=== PATIENT | male | born 1985 | race Caucasian/White ===

== ENCOUNTER 2018-05-15 17:55 | Emergency (ER) | payer OTHER ==
[2018-05-15] MEDS ORDERED: IBUPROFEN 600 MG TAB PO STA (18:20)
[2018-05-15] MEDS ORDERED: ACETAMINOPHEN TAB 500 MG TAB PO STA (18:20)
--- NOTE | 2018-05-15 18:35 | ED ---
Lower Extremity Injury HPI - General Chief Complaint: Extremity Injury, Lower Stated Complaint: Ankle Injury Time Seen by Provider: 05/15/18 18:14 Source: patient Mode of arrival: wheelchair Limitations: no limitations - History of Present Illness Initial Comments: 33-year-old male patient presents to the emergency department today for evaluation of right foot pain. Patient states he was helping a friend move when he stepped up onto a bench and twisted the foot. States that he is having pain along the right lateral foot and into the bottom of the foot. States initially he was able to ablate however became much more difficult and painful. He denies any numbness or tingling to the foot. States he has sprained ankle and foot multiple times in the past. He did fall with injury, denies hitting his head or losing consciousness. He denies any other injuries. Patient denies any headache, neck pain, back pain, chest pain, shortness of breath, dizziness, weakness, abdominal pain, nausea, vomiting, or difficulties with bowel movements or urination. - Related Data Home Medications Medication Instructions Recorded Confirmed ALPRAZolam [Xanax] 0.5 mg PO BID PRN 10/17/13 10/17/13 traMADol HCl [Ultram] 50 mg PO TID PRN 10/17/13 10/17/13 Previous Rx's Medication Instructions Recorded Ibuprofen [Motrin] 600 mg PO Q6HR PRN #20 tab 10/17/13 Ibuprofen [Motrin] 600 mg PO Q8HR PRN #30 tab 05/15/18 Allergies Allergy/AdvReac Type Severity Reaction Status Date / Time bee pollen Allergy Unknown Verified 05/15/18 17:59 house dust Allergy Unknown Verified 05/15/18 17:59 Review of Systems ROS Statement: Those systems with pertinent positive or pertinent negative responses have been documented in the HPI. ROS Other: All systems not noted in ROS Statement are negative. Past Medical History Past Medical History: No Reported History History of Any Multi-Drug Resistant Organisms: None Reported Past Surgical History: Hernia Repair Past Psychological History: Anxiety Smoking Status: Current every day smoker Past Alcohol Use History: Occasional Past Drug Use History: None Reported General Exam Limitations: no limitations General appearance: alert, in no apparent distress, other (This is a well- developed, well-nourished adult male patient in no acute distress. Vital signs upon presentation are temperature 97.2F, pulse 86, respirations 20, blood pressure 120/77, pulse ox 99% on room air.) Eye exam: Present: normal appearance, PERRL, EOMI. Absent: scleral icterus, conjunctival injection, periorbital swelling Neck exam: Present: normal inspection, full ROM, other (Nontender, no step-off, no deformity to firm midline palpation of the posterior cervical spine. Full range of motion without pain or limitation.). Absent: tenderness, meningismus, lymphadenopathy Respiratory exam: Present: normal lung sounds bilaterally. Absent: respiratory distress, wheezes, rales, rhonchi, stridor Cardiovascular Exam: Present: regular rate, normal rhythm, normal heart sounds. Absent: systolic murmur, diastolic murmur, rubs, gallop, clicks Back exam: Present: normal inspection, other (Nontender, no step-off, no deformity to firm midline palpation of the thoracic and lumbar vertebrae. Full range of motion without pain or limitation.). Absent: vertebral tenderness Neurological exam: Present: alert, oriented X3, CN II-XII intact Psychiatric exam: Present: normal affect, normal mood Skin exam: Present: warm, dry, intact, normal color. Absent: rash Course Vital Signs 05/15/18 05/15/18 17:57 19:58 Temperature 97.2 F L 98.2 F Pulse Rate 86 96 Respiratory 20 18 Rate Blood Pressure 120/77 147/67 O2 Sat by Pulse 99 96 Oximetry Medical Decision Making - Medical Decision Making 33-year-old male patient presented to the emergency department today for evaluation after twisting his right foot. Physical examination did reveal some soft tissue swelling over the dorsum of the right foot. Neurovascular status intact. Pulses 2+ and equal bilaterally. X-rays are negative for any evidence of fracture. Patient symptoms are consistent with a foot sprain. He is given Orestes wrap. Education regarding rest, ice, elevation. He is given prescription for anti-inflammatory pain medication. Instructed to follow-up with his primary care physician have repeat x-rays performed of symptoms persist beyond 7 -10 days. Return parameters discussed in detail. He verbalizes understanding and agrees with this plan. - Radiology Data Radiology results: report reviewed, image reviewed 3 views of the right foot are obtained. Metatarsals are intact. There is no fracture or dislocation. There is a plantar calcaneal spur. There are no erosions. Impression by Dr. Rand shows calcaneal spurring. No fracture seen. 3 views of the right ankle were obtained. There is moderate plantar calcaneal spur. Ankle mortise is anatomic. I see no fracture or dislocation. Joint spaces are fairly normal. Impression by Dr. Rand shows calcaneal spurring. No fracture seen Disposition Clinical Impression: Foot sprain Disposition: HOME SELF-CARE Condition: Good Instructions: Foot Sprain (ED) Additional Instructions: Use Orestes wrap for comfort and support. Keep right foot elevated, apply ice 20 minutes at a time at least 4 times daily. Have repeat x-ray performed in 7-10 days if pain symptoms persist. Follow-up with primary care physician for recheck in 1-2 days. Return immediately for any new, worsening, or concerning symptoms. Prescriptions: Ibuprofen [Motrin] 600 mg PO Q8HR PRN #30 tab PRN Reason: Pain Is patient prescribed a controlled substance at d/c from ED?: No Referrals: Veda Loredo MD [Primary Care Provider] - 1-2 days Time of Disposition: 19:50
--- NOTE | 2018-05-15 19:50 | XR ---
EXAMINATION TYPE: XR ankle complete RT DATE OF EXAM: 05/15/2018 COMPARISON: NONE HISTORY: Foot pain and ankle pain TECHNIQUE: 3 views FINDINGS: There is a moderate plantar calcaneal spur. Ankle mortise is anatomic. I see no fracture no r dislocation. Joint spaces are fairly normal. IMPRESSION: Calcaneal spurring. No fracture seen.
--- NOTE | 2018-05-15 19:51 | XR ---
EXAMINATION TYPE: XR foot complete RT DATE OF EXAM: 05/15/2018 COMPARISON: NONE HISTORY: Pain and injury TECHNIQUE: 3 views FINDINGS: Metatarsals are intact. I see no fracture nor dislocation. There is a plantar calcaneal spu r. There are no erosions. IMPRESSION: Calcaneal spurring. No fracture seen.
[2018-05-15 19:59] VITALS: BP 147/67; PULSE 96; RESP 18; TEMP 98.2
== END 2018-05-15 19:58 | disposition home or self-care (01) ==
LOC: EC 17:55
DX: S93.601A Unspecified sprain of right foot, initial encounter (principal); F17.200 Nicotine dependence, unspecified, uncomplicated; Z91.030 Bee allergy status; Z91.09 Other allergy status, other than to drugs and biological substances; X50.1XXA Overexertion from prolonged static or awkward postures, initial encounter; Y92.009 Unspecified place in unspecified non-institutional (private) residence as the place of occurrence of the external cause
CPT/HCPCS: 99283

== ENCOUNTER 2022-03-07 19:07 | Emergency (ER) | payer OTHER ==
[2022-03-07 19:18] VITALS: TEMP 97.6
--- NOTE | 2022-03-07 19:47 | XR ---
EXAMINATION TYPE: XR KUB DATE OF EXAM: 03/07/2022 COMPARISON: NONE HISTORY: Right upper quadrant pain TECHNIQUE: 2 views FINDINGS: There is no sign of intestinal obstruction or pneumoperitoneum. Fecal pattern is normal. No evidence of a mass. No calcifications over the kidneys. IMPRESSION: Nonacute abdomen.
[2022-03-07 20:32] LABS: ALT 40 U/L (4-49); AST 29 U/L (17-59); African American GFR (CKD) >90 (>60 ml/min/1.73 sqM); Albumin 4.5 g/dL (3.5-5.0); Alkaline Phosphatase 96 U/L (38-126); Amylase 128 U/L (30-110); Anion Gap 13 mmol/L; Basophils % (A) 0 %; Blood Urea Nitrogen 11 mg/dL (9-20); Calcium 9.9 mg/dL (8.4-10.2); Carbon Dioxide 24 mmol/L (22-30); Chloride 100 mmol/L (98-107); Eosinophils # (A) 0.3 k/uL (0-0.7); Eosinophils % (A) 2 %; Glucose 92 mg/dL (74-99); HCT 50.9 % (39.0-53.0); HGB 17.2 gm/dL (13.0-17.5); Lipase 714 U/L (23-300); Lymphocytes # (A) 1.7 k/uL (1.0-4.8); Lymphocytes % (A) 13 %; MCH 28.7 pg (25.0-35.0); MCHC 33.8 g/dL (31.0-37.0); MCV 84.7 fL (80.0-100.0); Mean Platelet Volume 7.9; Monocytes # (A) 0.5 k/uL (0-1.0); Monocytes % (A) 4 %; Neutrophils # (A) 10.4 k/uL (1.3-7.7); Neutrophils % (A) 79 %; Non-African American GFR(CKD) >90 (>60 ml/min/1.73 sqM); Platelet Count 201 k/uL (150-450); RBC 6.01 m/uL (4.30-5.90); RDW 12.8 % (11.5-15.5); Sodium 137 mmol/L (137-145); Total Bilirubin 1.2 mg/dL (0.2-1.3); Total Protein 7.8 g/dL (6.3-8.2); WBC 13.1 k/uL (3.8-10.6)
--- NOTE | 2022-03-07 21:13 | US ---
EXAMINATION TYPE: US abdomen limited DATE OF EXAM: 03/07/2022 COMPARISON: NONE CLINICAL HISTORY: ATTENTION TO RUQ- GALLBLADDER. Abdominal pain x 2 days TECHNIQUE: Multiple sonographic images of the right upper quadrant are obtained. FINDINGS: EXAM MEASUREMENTS: Liver Length: 15.4 cm Gallbladder Wall: 0.15 cm CBD: 0.33 cm Right Kidney: 11.8 x 6.0 x 5.6 cm ENERGY BROKER NOTES: Pancreas: Obscured by bowel gas Liver: Increased attenuation, decreased visualization of vessels suggestive of fatty infiltrate Gallbladder: wnl Evidence for sonographic Griffiths's sign: No CBD: wnl Right Kidney: wnl IMPRESSION: No gallstones or dilated ducts. No discrete liver mass. There is probably some fatty infiltration of the liver.
[2022-03-07] MEDS ORDERED: SODIUM CHLORIDE 0.9% 1,000 ML IV STA (22:21)
[2022-03-07] MEDS ORDERED: KETOROLAC 15 MG/ML 1 ML VIAL IVP STA (22:22)
--- NOTE | 2022-03-07 22:49 | ED ---
Abdominal Pain HPI - General Chief Complaint: Abdominal Pain Stated Complaint: Sent by Urgent Care to get US on gallbladder Time Seen by Provider: 03/07/22 22:16 Source: patient, RN notes reviewed Mode of arrival: ambulatory Limitations: no limitations - History of Present Illness Initial Comments: This patient presents to the emergency department complaining of pain which started yesterday.pain is intermittent, may be related to eating meals. Patient states it seemed to get worse after a meal he ate with pork. Patient went to urgent care today was sent here for evaluation of right upper quadrant abdominal pain. Patient is been passing increased amount of flatus. No headache, no fever or chills, no changes in vision or hearing, no sore throat or difficulty with speech, no neck pain, no chest pain or shortness of breath, no abdominal pain, no vomiting, no changes in urination or bowel movements, no numbness or tingling, no extremity pain, no skin rashes or lesions. Patient admits to alcohol intake, but states that is nothing excessive. He states initially that he got this pain. He states he did drink three 22 ounce beers which is a little more than usual for him. Past medical, surgical, social, and family history reviewed. MD Complaint: abdominal pain - Related Data Home Medications Medication Instructions Recorded Confirmed ALPRAZolam [Xanax] 0.5 mg PO BID PRN 10/17/13 10/17/13 traMADol HCl [Ultram] 50 mg PO TID PRN 10/17/13 10/17/13 Previous Rx's Medication Instructions Recorded Ibuprofen [Motrin] 600 mg PO Q6HR PRN #20 tab 10/17/13 Ibuprofen [Motrin] 600 mg PO Q8HR PRN #30 tab 05/15/18 Allergies Allergy/AdvReac Type Severity Reaction Status Date / Time bee pollen Allergy Unknown Verified 05/15/18 17:59 house dust Allergy Unknown Verified 05/15/18 17:59 Review of Systems ROS Statement: Those systems with pertinent positive or pertinent negative responses have been documented in the HPI. ROS Other: All systems not noted in ROS Statement are negative. Past Medical History Past Medical History: No Reported History History of Any Multi-Drug Resistant Organisms: None Reported Past Surgical History: Hernia Repair Past Psychological History: Anxiety Smoking Status: Former smoker Past Alcohol Use History: Occasional Past Drug Use History: None Reported General Exam - General Exam Comments Initial Comments: Vital signs stable, patient afebrile. Patient does not appear to be ill or toxic. Limitations: no limitations General appearance: alert, in no apparent distress Head exam: Present: atraumatic, normocephalic, normal inspection Eye exam: Present: normal appearance, PERRL, EOMI. Absent: scleral icterus, conjunctival injection, periorbital swelling ENT exam: Present: normal exam, mucous membranes moist Neck exam: Present: normal inspection, full ROM. Absent: tenderness, meningismus, lymphadenopathy Respiratory exam: Present: normal lung sounds bilaterally. Absent: respiratory distress, wheezes, rales, rhonchi, stridor Cardiovascular Exam: Present: regular rate, normal rhythm, normal heart sounds. Absent: systolic murmur, diastolic murmur, rubs, gallop, clicks GI/Abdominal exam: Present: soft, tenderness (Right upper quadrant tenderness), guarding, normal bowel sounds. Absent: distended, rebound, rigid Extremities exam: Present: normal inspection, full ROM, normal capillary refill. Absent: tenderness, pedal edema, joint swelling, calf tenderness Back exam: Present: normal inspection Neurological exam: Present: alert, oriented X3, CN II-XII intact Psychiatric exam: Present: normal affect, normal mood Skin exam: Present: warm, dry, intact, normal color. Absent: rash Course Vital Signs 03/07/22 19:16 Temperature 97.6 F Pulse Rate 72 Respiratory 20 Rate Blood Pressure 141/89 O2 Sat by Pulse 98 Oximetry - Reevaluation(s) Reevaluation #1: 03/07/22 23:40 Motor shows increased attenuation, with decreased visualization of the vessels suggestive of fatty infiltrate gallbladder is normal. Griffiths sign negative., Bowel duct normal limits. Patient reevaluated and is hemodynamically stable. Patient be admitted for pancreatitis. 03/07/22 23:40 Reevaluation #2: 03/08/22 01:53 Patient reevaluated and is much improved. Denies any pain. Able to hold down fluids. Lipase is elevated, there is no definitive pancreatitis on computed tomography scan. However there is some nonspecific retroperitoneal stranding which could be related to pancreatitis. Discussed all findings with the patient. 03/08/22 01:56 Medical Decision Making - Medical Decision Making Patient much improved at discharge. Afebrile. Vital signs stable. I suspect the patient's symptomatology is related to the alcohol intake. Patient is able to hold down fluids normally. Lipase is elevated but is not 3 times normal. There was no definitive pancreatitis on computed tomography scan. We'll have t he patient follow-up with both his regular physician and gastroenterology. We'll have the patient adhere to a clear liquid diet for the next 24 hours. He is to call in the morning to make a follow-up appointment with gastroenterology as well as his regular physician. Patient understands this. We'll have the patient avoid alcohol as he did admit to be 66 ounces of beer at the onset of this abnormality. Does not appear to be consistent with infectious etiology Patient was told to return to the ER for any signs or symptoms worsen. Told to return immediately if any other problems arise. All questions answered. Treatment plan discussed. Patient in agreement Every effort has been made to ensure accuracy of this dictation. However, due to the limitations of electronic medical records and dictation devices, errors in charting still occur. Supervising Dr. Lorenz - Lab Data Result diagrams: 03/07/22 22:40 03/07/22 22:40 Lab Results 03/07/22 03/07/22 03/07/22 Range/Units 20:13 20:13 22:40 WBC 13.1 H 14.1 H (3.8-10.6) k/uL RBC 6.01 H 5.80 (4.30-5.90) m/uL Hgb 17.2 16.6 (13.0-17.5) gm/dL Hct 50.9 49.3 (39.0-53.0) % MCV 84.7 85.1 (80.0-100.0) fL MCH 28.7 28.6 (25.0-35.0) pg MCHC 33.8 33.6 (31.0-37.0) g/dL RDW 12.8 12.8 (11.5-15.5) % Plt Count 201 195 (150-450) k/uL MPV 7.9 8.4 Neutrophils % 79 81 % Lymphocytes % 13 11 % Monocytes % 4 5 % Eosinophils % 2 2 % Basophils % 0 0 % Neutrophils # 10.4 H 11.5 H (1.3-7.7) k/uL Lymphocytes # 1.7 1.5 (1.0-4.8) k/uL Monocytes # 0.5 0.6 (0-1.0) k/uL Eosinophils # 0.3 0.3 (0-0.7) k/uL Basophils # 0.0 0.0 (0-0.2) k/uL Sodium 137 (137-145) mmol/L Potassium 4.0 (3.5-5.1) mmol/L Chloride 100 (98-107) mmol/L Carbon Dioxide 24 (22-30) mmol/L Anion Gap 13 mmol/L BUN 11 (9-20) mg/dL Creatinine 0.88 (0.66-1.25) mg/dL Est GFR (CKD-EPI)AfAm >90 (>60 ml/min/1.73 sqM) Est GFR (CKD-EPI)NonAf >90 (>60 ml/min/1.73 sqM) Glucose 92 (74-99) mg/dL Calcium 9.9 (8.4-10.2) mg/dL Total Bilirubin 1.2 (0.2-1.3) mg/dL AST 29 (17-59) U/L ALT 40 (4-49) U/L Alkaline Phosphatase 96 (38-126) U/L Total Protein 7.8 (6.3-8.2) g/dL Albumin 4.5 (3.5-5.0) g/dL Amylase 128 H (30-110) U/L Lipase 714 H (23-300) U/L 03/07/22 Range/Units 22:40 WBC (3.8-10.6) k/uL RBC (4.30-5.90) m/uL Hgb (13.0-17.5) gm/dL Hct (39.0-53.0) % MCV (80.0-100.0) fL MCH (25.0-35.0) pg MCHC (31.0-37.0) g/dL RDW (11.5-15.5) % Plt Count (150-450) k/uL MPV Neutrophils % % Lymphocytes % % Monocytes % % Eosinophils % % Basophils % % Neutrophils # (1.3-7.7) k/uL Lymphocytes # (1.0-4.8) k/uL Monocytes # (0-1.0) k/uL Eosinophils # (0-0.7) k/uL Basophils # (0-0.2) k/uL Sodium 137 (137-145) mmol/L Potassium 4.2 (3.5-5.1) mmol/L Chloride 97 L (98-107) mmol/L Carbon Dioxide 28 (22-30) mmol/L Anion Gap 12 mmol/L BUN 13 (9-20) mg/dL Creatinine 0.95 (0.66-1.25) mg/dL Est GFR (CKD-EPI)AfAm >90 (>60 ml/min/1.73 sqM) Est GFR (CKD-EPI)NonAf >90 (>60 ml/min/1.73 sqM) Glucose 94 (74-99) mg/dL Calcium 9.8 (8.4-10.2) mg/dL Total Bilirubin 1.3 (0.2-1.3) mg/dL AST 30 (17-59) U/L ALT 41 (4-49) U/L Alkaline Phosphatase 97 (38-126) U/L Total Protein 7.9 (6.3-8.2) g/dL Albumin 4.7 (3.5-5.0) g/dL Amylase (30-110) U/L Lipase 665 H (23-300) U/L - Radiology Data Radiology results: report reviewed, image reviewed Disposition Clinical Impression: Acute pancreatitis Disposition: HOME SELF-CARE Condition: Good Instructions (If sedation given, give patient instructions): Pancreatitis (ED) Additional Instructions: Call tomorrow morning to schedule an appointment with the [facility] as well as your regular physician as discussed. Clear liquid diet for the next 24 hours. Avoid alcohol until follow-up. Follow-up with your regular physician as directed. Return to the ER immediately if any symptoms worsen, new symptoms arise, or any other problems develop. Is patient prescribed a controlled substance at d/c from ED?: No Referrals: Veda Loredo MD [Primary Care Provider] - 1-2 days Lidia Heath MD [STAFF PHYSICIAN] - 1-2 days Time of Disposition: 23:42 Decision to Admit Reason: Admit from EC Decision Time: 23:42
[2022-03-07 23:05] LABS: Basophils % (A) 0 %; Eosinophils # (A) 0.3 k/uL (0-0.7); Eosinophils % (A) 2 %; HCT 49.3 % (39.0-53.0); HGB 16.6 gm/dL (13.0-17.5); Lymphocytes # (A) 1.5 k/uL (1.0-4.8); Lymphocytes % (A) 11 %; MCH 28.6 pg (25.0-35.0); MCHC 33.6 g/dL (31.0-37.0); MCV 85.1 fL (80.0-100.0); Mean Platelet Volume 8.4; Monocytes # (A) 0.6 k/uL (0-1.0); Monocytes % (A) 5 %; Neutrophils # (A) 11.5 k/uL (1.3-7.7); Neutrophils % (A) 81 %; Platelet Count 195 k/uL (150-450); RDW 12.8 % (11.5-15.5); WBC 14.1 k/uL (3.8-10.6)
[2022-03-07 23:06] LABS: ALT 41 U/L (4-49); AST 30 U/L (17-59); African American GFR (CKD) >90 (>60 ml/min/1.73 sqM); Albumin 4.7 g/dL (3.5-5.0); Alkaline Phosphatase 97 U/L (38-126); Anion Gap 12 mmol/L; Blood Urea Nitrogen 13 mg/dL (9-20); Calcium 9.8 mg/dL (8.4-10.2); Carbon Dioxide 28 mmol/L (22-30); Chloride 97 mmol/L (98-107); Glucose 94 mg/dL (74-99); Lipase 665 U/L (23-300); Non-African American GFR(CKD) >90 (>60 ml/min/1.73 sqM); Potassium 4.2 mmol/L (3.5-5.1); Sodium 137 mmol/L (137-145); Total Bilirubin 1.3 mg/dL (0.2-1.3); Total Protein 7.9 g/dL (6.3-8.2)
--- NOTE | 2022-03-08 00:14 | CT ---
EXAMINATION TYPE: CT abdomen pelvis w con DATE OF EXAM: 03/07/2022 COMPARISON: HISTORY: ABD PAIN CT DLP: 1164.4 mGycm Automated exposure control for dose reduction was used. CONTRAST: Performed with IV Contrast, patient injected with 100 mL of Isovue 300. Images obtained from the diaphragm to the floor the pelvis with the IV contrast. Lung bases are clear. No pleural effusion. Heart size is normal. No pericardial effusion. Liver splee n pancreas and stomach appear intact. The bile ducts are nondilated. Gallbladder appears normal. There is no adrenal mass. Kidneys show satisfactory contrast opacification. No hydronephrosis. No ret roperitoneal adenopathy. Delayed images show normal renal excretion. There is mild fluid in the anter ior right side perirenal space. The appendix is posterior and appears normal. The bladder distends smoothly. No inguinal hernia. No f ree fluid in the pelvis. No pelvic mass. The lumbar vertebrae have normal alignment. Compression fracture. This spaces are fairly normal. The bony pelvis is intact. The hip joints are intact. Sacroiliac joints are intact. There is no mesenteric edema. No ascites or free air. No sign of a bowel obstruction IMPRESSION: Right side retroperitoneal fat stranding of uncertain significance. No evidence of renal stone or obs truction. No sign of pyelonephritis. This could be sequela of pancreatitis.
[2022-03-08 02:17] VITALS: BP 131/92; PULSE 68; RESP 18
== END 2022-03-08 02:17 | disposition home or self-care (01) ==
LOC: EC 19:07
DX: K85.90 Acute pancreatitis without necrosis or infection, unspecified (principal); Z87.891 Personal history of nicotine dependence; Z91.030 Bee allergy status; Z91.09 Other allergy status, other than to drugs and biological substances
CPT/HCPCS: 36415; 80053; 82150; 83690; 85025; 74018; 76705; 74177; 99284; 96374; 96361; J1885; Q9967